=== PATIENT | female | born 1990 | race Caucasian/White ===

== ENCOUNTER 2021-02-19 14:05 | Outpatient (REF) | payer SELFPAY ==
[2021-02-20 08:18] LABS: HBS Num1 3.66 mIU/mL (0-7.99); ~Hepatitis B Surface Antibody NONREACTIVE (Nonreactive)
[2021-02-22 15:56] LABS: TS Negative Control Passed; TS Panel A 0; TS Panel B 0; TS Positive Control Passed; TSpotTB Negative (SeeBelow)
== END 2021-02-19 14:06 | disposition home or self-care (01) ==
LOC: HO.LNP 14:05
PROVIDERS: Visit Provider Physician Assistant Medical
DX: Z02.1 Encounter for pre-employment examination (principal)
CPT/HCPCS: 86481; 86706